=== PATIENT | female | born 1980 | race American Indian/Alaskan Native ===

== ENCOUNTER 2017-05-01 23:02 | Emergency (ER) | payer OTHER ==
[2017-05-02] MEDS ORDERED: TYLENOL ONE (00:24)
[2017-05-02] MEDS ORDERED: TYLENOL PO ONE (00:26)
--- NOTE | 2017-05-02 03:22 | Emergency Department Report ---
ED General Adult HPI - General Chief complaint: Extremity Injury, Lower Stated complaint: FALL/RT KNEE PAIN Time Seen by Provider: 05/02/17 00:55 Source: patient Mode of arrival: Ambulatory Limitations: No Limitations - History of Present Illness Initial comments: Patient is a 37-year-old female who presents with some right knee pain. Patient states the pain is a 10 out of 10. She states that she fell and slipped on some liquid night and she's been taking [id number] medication home and has been helping her knee pain she states that it's an achy type pain, makes it better walking and moving around makes it worse. She has no numbness no tingling in her lower extremity she is able to walk and bear weight without any distress. Severity scale (0 -10): 5 - Related Data Previous Rx's Medication Instructions Recorded Last Taken Type Naproxen [Naprosyn] 375 mg PO BID PRN #20 tablet 05/02/17 Unknown Rx Allergies Allergy/AdvReac Type Severity Reaction Status Date / Time No Known Allergies Allergy Verified 05/02/17 00:22 ED Review of Systems ROS: Stated complaint: FALL/RT KNEE PAIN Other details as noted in HPI Constitutional: denies: chills, fever Eyes: denies: eye pain, eye discharge, vision change ENT: denies: ear pain, throat pain Respiratory: denies: cough, shortness of breath, wheezing Cardiovascular: denies: chest pain, palpitations Endocrine: no symptoms reported Gastrointestinal: denies: abdominal pain, nausea, diarrhea Genitourinary: denies: urgency, dysuria, discharge Musculoskeletal: other (knee pain). denies: back pain, joint swelling, arthralgia Skin: denies: rash, lesions Neurological: denies: headache, weakness, paresthesias Psychiatric: denies: anxiety, depression Hematological/Lymphatic: denies: easy bleeding, easy bruising ED Past Medical Hx - Past Medical History Previous Medical History?: No - Surgical History Past Surgical History?: No - Social History Smoking Status: Never Smoker - Medications Home Medications: Home Medications Medication Instructions Recorded Confirmed Last Taken Type Naproxen [Naprosyn] 375 mg PO BID PRN #20 tablet 05/02/17 Unknown Rx ED Physical Exam - General Limitations: No Limitations General appearance: alert, in no apparent distress - Head Head exam: Present: atraumatic, normocephalic - Eye Eye exam: Present: normal appearance - ENT ENT exam: Present: mucous membranes moist - Neck Neck exam: Present: normal inspection - Respiratory Respiratory exam: Present: normal lung sounds bilaterally. Absent: respiratory distress - Cardiovascular Cardiovascular Exam: Present: regular rate, normal rhythm. Absent: systolic murmur, diastolic murmur, rubs, gallop - GI/Abdominal GI/Abdominal exam: Present: soft, normal bowel sounds - Extremities Exam Extremities exam: Present: normal inspection, other (mild swelling and right knee no deformity anterior and posterior drawer sign are negative. DP pulse is neurovascularly intact) - Back Exam Back exam: Present: normal inspection - Neurological Exam Neurological exam: Present: alert, oriented X3 - Psychiatric Psychiatric exam: Present: normal affect, normal mood - Skin Skin exam: Present: warm, dry, intact, normal color. Absent: rash ED Course Vital Signs 05/02/17 05/02/17 05/02/17 00:11 00:14 00:27 Temperature 98.0 F 98.5 F Pulse Rate 87 75 Respiratory 18 13 20 Rate Blood Pressure 170/122 Blood Pressure 186/95 [Right] O2 Sat by Pulse 97 98 Oximetry - Reevaluation(s) Reevaluation #1: 05/02/17 03:19 Discussed with patient about x-ray findings she feels comfortable and is ready to go. ED Medical Decision Making - Radiology Data Radiology results: report reviewed, image reviewed Right knee x-ray: Shows no acute osseous injury - Medical Decision Making Chief medical diagnosis: Patella fracture Differential medical diagnosis: Patella ligament strain, quadricep tendon strain X-ray and oral analgesic medication Patient's history and negative x-ray are unremarkable for injury. Most likely a knee sprain we'll send patient home to follow-up with primary care provider. Critical care attestation.: If time is entered above; I have spent that time in minutes in the direct care of this critically ill patient, excluding procedure time. ED Disposition Clinical Impression: Knee pain, right Qualifiers: Chronicity: acute Qualified Code(s): M25.561 - Pain in right knee Fall Qualifiers: Encounter type: subsequent encounter Qualified Code(s): W19.XXXD - Unspecified fall, subsequent encounter Disposition: TO HOME OR SELFCARE Is pt being admited?: No Does the pt Need Aspirin: No Condition: Stable Instructions: Arthralgia (ED) Prescriptions: Naproxen [Naprosyn] 375 mg PO BID PRN #20 tablet PRN Reason: Pain Referrals: PRIMARY CARE,MD [Primary Care Provider] - 3-5 Days
[2017-05-02 03:38] VITALS: BP 187/116
--- NOTE | 2017-05-02 09:07 | XRay Report ---
RIGHT KNEE: Trauma, pain. The bony architecture is intact without evidence of fracture or dislocation. No significant soft tissue abnormality is seen. IMPRESSION: Normal right knee.
== END 2017-05-02 03:37 | disposition home or self-care (01) ==
LOC: ED 23:02
DX: M25.561 Pain in right knee (principal); W01.0XXA Fall on same level from slipping, tripping and stumbling without subsequent striking against object, initial encounter; Y93.9 Activity, unspecified; Y92.9 Unspecified place or not applicable; Y99.9 Unspecified external cause status